=== PATIENT | female | born 1990 ===

== ENCOUNTER 2018-07-21 16:31 | Emergency (ER) | payer OTHER ==
[2018-07-21] MEDS ORDERED: Sodium Chloride 0.9% 1,000 ML IV STA (17:08)
--- NOTE | 2018-07-21 17:11 | ED PDOC ---
HPI: Abdomen Time Seen by Provider: 07/21/18 17:08 Chief Complaint (Nursing): Abdominal Pain Chief Complaint (Provider): abdominal pain History Per: Patient (28 y/o female h/o abdominal pain last night noted a sharp and followed by loose stools. Denies any vomiting/fevers/chills. Notes improvement but feels weak.) Past Medical History Reviewed: Historical Data, Nursing Documentation, Vital Signs Vital Signs: Last Vital Signs Temp 99.0 F 07/21/18 16:34 Pulse 83 07/21/18 16:34 Resp 16 07/21/18 16:34 BP 105/71 07/21/18 16:34 Pulse Ox 99 07/21/18 16:34 - Medical History PMH: Gastritis - Surgical History Surgical History: (1) - Family History Family History: States: Diabetes - Home Medications Home Medications: Ambulatory Orders Medication Instructions Recorded Permethrin 5% [Permethrin 5% Cream] 60 gm EXT ONCE #1 tube 03/16/15 Prednisone 50 mg PO DAILY #4 tab 03/16/15 hydrOXYzine HCl [Atarax] 25 mg PO Q6H PRN #10 tab 03/16/15 Miconazole [Miconazole 7] 100 mg VG DAILY #7 sup 06/10/15 Nitrofurantoin Macrocrystals 1 cap PO BID #14 cap 08/06/15 [Macrobid] Phenazopyridine Hydrochlorid2 200 mg PO BID PRN #20 tab 08/06/15 [Pyridium] Dicyclomine [Bentyl] 20 mg PO Q12 PRN #20 tab 03/17/16 Famotidine [Pepcid] 20 mg PO Q12 #14 tab 03/17/16 Ondansetron ODT [Zofran ODT] 4 mg PO Q6 PRN #16 odt 03/17/16 Esomeprazole Magnesium [Nexium] 20 mg PO DAILY 7 Days capsule. 03/23/16 Dicyclomine [Bentyl] 1 tab PO Q6 PRN #10 tab 07/21/18 - Allergies Allergies/Adverse Reactions: Allergies Allergy/AdvReac Type Severity Reaction Status Date / Time No Known Allergies Allergy Verified 07/21/18 16:34 Review of Systems ROS Statement: Except As Marked, All Systems Reviewed And Found Negative Physical Exam - Reviewed Nursing Documentation Reviewed: Yes Vital Signs Reviewed: Yes - Physical Exam Appears: Positive for: Well, Non-toxic, No Acute Distress Head Exam: Positive for: ATRAUMATIC, NORMAL INSPECTION, NORMOCEPHALIC Skin: Positive for: Normal Color, Warm, DRY Eye Exam: Positive for: EOMI, Normal appearance, PERRL ENT: Positive for: Normal ENT Inspection Neck: Positive for: Normal, Painless ROM Cardiovascular/Chest: Positive for: Regular Rate, Rhythm Respiratory: Positive for: CNT, Normal Breath Sounds Gastrointestinal/Abdominal: Positive for: Normal Exam, Soft Back: Positive for: Normal Inspection Extremity: Positive for: Normal ROM Neurologic/Psych: Positive for: Alert, Oriented - Laboratory Results Result Diagrams: 07/21/18 17:00 07/21/18 17:00 Urine POC: Negative Urine dip results: Positive for: Blood. Negative for: Leukocyte Esterase, Nitrate, Ketones, Glucose, Bilirubin - ECG O2 Sat by Pulse Oximetry: 99 - Progress ED Course And Treament: pepcid 20 mg iv x 1 dose bentyl 20 mg x 1 dose ns 1 liter 500ml per hour x 1 liters Disposition - Clinical Impression Clinical Impression: Abdominal pain in female - Patient ED Disposition Is Patient to be Admitted: No - Disposition Referrals: Saw Leyva MD [Staff Provider] - Disposition: Routine/Home Disposition Time: 17:55 Condition: FAIR Prescriptions: Dicyclomine [Bentyl] 1 tab PO Q6 PRN #10 tab PRN Reason: Pain, Moderate (4-7) Instructions: Acute Abdomen (Belly Pain), Adult (DC) Forms: [employer] (Japanese), [facility] ED School/Work Excuse
[2018-07-21 17:36] LABS: SQUAMOUS EPITHIAL 5 /hpf (0-5); URINE BACTERIA OCC (<OCC); URINE BILIRUBIN NEGATIVE (NEGATIVE); URINE BLOOD LARGE (NEGATIVE); URINE CALCIUM OXALATE CRYSTALS RARE /hpf (<OCC); URINE CLARITY CLOUDY (Clear); URINE COLOR AMBER (YELLOW); URINE GLUCOSE (UA) NEG (NEGATIVE); URINE PROTEIN 30 mg/dL (NEGATIVE)
[2018-07-21 17:36] LABS: BASO # 0.1 K/uL (0.0-0.2); BASO % 0.4 % (0.0-2.0); EOS # 0.1 K/uL (0.0-0.7); EOS % 0.4 % (0.0-4.0); HEMOGLOBIN 11.8 g/dL (12.0-16.0); LYMPH % 8.3 % (20.0-40.0); MEAN CELL VOLUME 87.7 fl (81.0-99.0); MEAN CORPUSCULAR HEMOGLOBIN 28.3 pg (27.0-31.0); MEAN CORPUSCULAR HGB CONC 32.2 g/dL (33.0-37.0); MONO # 0.7 K/uL (0.0-0.8); MONO % 5.7 % (0.0-10.0); NEUT # 10.4 K/uL (1.8-7.0); NEUT % 85.2 % (50.0-75.0); PLATELET COUNT 237 K/uL (130-400); RBC 4.16 Mil/uL (3.80-5.20); RED CELL DISTRIBUTION WIDTH 14.1 % (11.5-14.5); WHITE BLOOD COUNT 12.2 K/uL (4.8-10.8)
[2018-07-21 17:44] LABS: ALB/GLOB RATIO 1.2 (1.0-2.1); ALT/SGPT 26 U/L (9-52); AST/SGOT 25 U/L (14-36); BLOOD UREA NITROGEN 15 mg/dl (7-17); CALCIUM 9.5 mg/dL (8.4-10.2); GFR NON-AFRICAN AMERICAN > 60; LIPASE 38 U/L (23-300)
[2018-07-21 17:55] LABS: URINE LEUKOCYTE ESTERASE TRACE Leu/uL (Negative)
[2018-07-21 18:13] VITALS: BP 110/72; PULSE 76; RESP 18; TEMP 98.4; O2SAT 100
[2018-07-21 18:53] LABS: LYMPHOCYTE 9 % (20-50); MONOCYTE 6 % (0-10); NEUTROPHIL 85 % (42-75); PLATELET ESTIMATE NORMAL (NORMAL); TOTAL CELLS COUNTED 100
[2018-07-21 18:54] LABS: ANISOCYTOSIS SLIGHT; LARGE PLATELETS PRESENT
== END 2018-07-21 18:12 | disposition home or self-care (01) ==
LOC: H.ER 16:31
DX: R10.9 Unspecified abdominal pain (principal)
CPT/HCPCS: 80053; 81003; 81025; 83690; 85025; 96374; 99283; J7030